=== PATIENT | female | born 1985 | race Caucasian/White ===

== ENCOUNTER 2016-08-27 08:10 | Emergency (ER) | payer OTHER ==
[2016-08-27 08:38] LABS: BASO # 0.1 10_X3_uL (0.0-0.1); BASO % 0.5 % (0.1-1.2); EOS # 0.5 10_X3_uL (0.0-0.4); EOS % 3.6 % (0.7-5.8); GRAN # 6.6 10_X3_uL (1.6-6.1); GRAN % 44.9 % (34.0-71.1); HEMATOCRIT 35.1 % (34-45); HEMOGLOBIN 11.5 g/dL (11.2-15.7); LYMPH # 6.3 10_X3_uL (1.2-3.7); LYMPH % 42.8 % (19.3-51.7); MEAN CORPUSCULAR HEMOGLOBIN 28.6 pg (27.0-33.0); MEAN CORPUSCULAR HGB CONC 32.8 g/dL (32.0-36.0); MEAN CORPUSCULAR VOLUME 87.3 fL (79-95); MEAN PLATELET VOLUME 9.1 fl (7.5-11.5); MONO # 1.2 10_X3_uL (0.2-0.9); MONO % 8.2 % (4.7-12.5); PLATELET COUNT 710 x10_3/uL (182-369); RED BLOOD COUNT 4.02 x10_6/uL (3.9-5.2); RED CELL DISTRIBUTION WIDTH 14.4 % (11.7-14.4); WHITE BLOOD COUNT 14.6 x10_3/uL (4.0-10.0)
[2016-08-27 08:54] LABS: BLOOD UREA NITROGEN 14 mg/dL (7-18); CALCIUM 8.9 mg/dL (8.7-10.7); CARBON DIOXIDE 23 mmol/L (21-32); CREATININE 0.9 mg/dL (0.6-1.3); GLUCOSE,RANDOM 118 mg/dL (70-99); POTASSIUM 4.1 mmol/L (3.5-5.1); SODIUM 140 mmol/L (136-145)
== END 2016-08-27 13:00 | disposition home or self-care (01) ==
LOC: ER 08:10
PROVIDERS: Emergency Medicine
DX: N20.1 Calculus of ureter (principal); R11.2 Nausea with vomiting, unspecified; Z87.442 Personal history of urinary calculi; Z98.51 Tubal ligation status; F17.210 Nicotine dependence, cigarettes, uncomplicated
CPT/HCPCS: 36415; 74150; 80048; 85025; 96372; 99070; 99284-25